=== PATIENT | female | born 1945 | race Caucasian/White ===

== ENCOUNTER 2020-11-06 18:34 | Inpatient (IN) | payer BC ==
[~2020-11-06] VITALS: Ht 167.6 cm; Wt 63.5 kg
[2020-11-06 18:36] VITALS: BP_SYST 137
[2020-11-06] MEDS ORDERED: VANCOMYCIN HCL 1,000 MG in NS 250 ML IV ONE (19:00)
[2020-11-06] MEDS ORDERED: CEFEPIME 1 GM in D5W 50 ML IV ONE (19:00)
[2020-11-06 19:12] LABS: BASOPHILS % (AUTO) 0.1 % (0.0-2.0); LYMPHOCYTES # (AUTO) 0.2 K/uL (1.0-5.5); LYMPHOCYTES % (AUTO) 2.9 % (20.5-51.5); MEAN CORPUSCULAR HEMOGLOBIN 30 pg (27-31); MEAN CORPUSCULAR HGB CONC 35 % (32-36); MEAN CORPUSCULAR VOLUME 87 fL (79.0-98.0); MONOCYTES # (AUTO) 0.2 K/uL (0.0-1.0); MONOCYTES % (AUTO) 1.9 % (1.7-9.3); NEUTROPHILS # (AUTO) 7.5 K/uL (1.8-7.7); NEUTROPHILS % (AUTO) 95.1 % (40.0-70.0); PLATELET COUNT (AUTO) 228 K/uL (130-430); RED BLOOD CELL COUNT(AUTO) 2.98 MIL/uL (4.2-6.2); RED CELL DISTRIBUTION WIDTH 14.2 % (9.0-15.0); WHITE BLOOD COUNT (AUTO) 7.9 K/uL (4.8-10.8)
[2020-11-06] MEDS ORDERED: PROPOFOL DRIP 100 ML IV ONE ×3 (19:12→21:00)
[2020-11-06] MEDS ORDERED: ETOMIDATE 20 MG/ 10 ML VIAL (AMIDATE) IVP ONE (19:15)
[2020-11-06] MEDS ORDERED: ROCURONIUM BROMIDE 10 MG/ML (ZEMURON) IV ONE (19:15)
[2020-11-06] MEDS ORDERED: NACL 0.9% 1,000 ML IV ONE (19:30)
[2020-11-06 19:33] LABS: INR 1.2 (0.8-1.2); PROTHROMBIN TIME 12.2 SECS (9.5-12.5)
[2020-11-06 19:38] LABS: C-REACTIVE PROTEIN QUANT 18.3 mg/dL (0-0.5)
[2020-11-06 19:41] LABS: ANION GAP 8 (5-15); CALCIUM 10.4 mg/dL (8.4-11.0); CHLORIDE 103 mmol/L (98-107); CREATININE 1.29 mg/dL (0.55-1.30); SODIUM SERUM 134 mmol/L (136-145); UREA NITROGEN, BLOOD 17 mg/dL (8-21)
[2020-11-06 19:50] LABS: GLUCOSE 124 mg/dL (70-99); POTASSIUM 2.4 mmol/L (3.5-5.1)
[2020-11-06 19:52] LABS: ALANINE AMINOTRANSFERASE 94 U/L (12-78); ALBUMIN 1.6 g/dL (3.4-4.8); ASPARTATE AMINOTRANSFERASE 123 U/L (10-37); BILIRUBIN,DIRECT 0.4 mg/dL (0.0-0.3); TOTAL BILIRUBIN 0.9 mg/dL (0.0-1.0)
[2020-11-06 19:53] LABS: LIPASE 266 U/L (73-393)
[2020-11-06] MEDS ORDERED: MAGNESIUM SULFATE 1 GM/2 ML VIAL IVP ONE (20:00)
[2020-11-06] MEDS ORDERED: POTASSIUM CHLORIDE 20 MEQ/PKT PACKET NG ONE (20:00)
[2020-11-06] MEDS ORDERED: POTASSIUM CHLORIDE 30 MEQ in NACL 0.9% 1,000 ML IV SCH (20:00)
[2020-11-06 20:07] LABS: BILIRUBIN,URINE NEGATIVE (NEGATIVE); BLOOD, URINE NEGATIVE (NEGATIVE); CLARITY/URINE CLEAR (CLEAR); COLOR,URINE YELLOW (YELLOW); GLUCOSE,URINE NEGATIVE (NEGATIVE); KETONES,URINE NEGATIVE (NEGATIVE); LEUKOCYTE ESTERASE ,URINE NEGATIVE (NEGATIVE); NITRITE, URINE NEGATIVE (NEGATIVE); PROTEIN URINE 1+ (NEGATIVE); UROBILINOGEN,URINE 0.2 (0.2-1.0)
[2020-11-06] MEDS ORDERED: IOHEXOL 350 mgI/mL, 150 ML INFUS..BTL IV ONE (20:23)
[2020-11-06 20:24] LABS: BACTERIA,URINE None Seen /HPF (None Seen); CALCIUM PHOSPHATE CRYSTALS,UR None Seen /HPF (None Seen); RBC,URINE NONE SEEN /HPF (0-3); TRICHOMONAS,URINE None Seen /HPF (None Seen); WBC,URINE 0-3 /HPF (0-3); YEAST,URINE None Seen /HPF (None Seen)
[2020-11-06] MEDS ORDERED: LevALBUTEROL HCL 1.25 MG/0.5 ML *CONC.* VIAL.NEB (XOPENEX CONC.) INH ONE (20:53)
[2020-11-06] MEDS ORDERED: CEFEPIME 1 GM/VIAL (MAXIPIME) ONE (20:56)
[2020-11-06] MEDS ORDERED: VANCOMYCIN HCL 1000 MG/VIAL IV ONE (20:56)
[2020-11-06] MEDS ORDERED: ALBUTEROL SULFATE 0.083% 2.5 MG/3 ML VIAL.NEB INH PRN (21:00)
[2020-11-06] MEDS ORDERED: LORazepam 2 MG/ML VIAL IVP PRN (21:00)
[2020-11-06] MEDS ORDERED: ACETAMINOPHEN 325 MG TABLET PO PRN (21:00)
[2020-11-06] MEDS ORDERED: AZITHROMYCIN 500 MG in NS 250 ML IV ONE (21:15)
[2020-11-06] MEDS ORDERED: *LOVENOX 1MG/KG Q12H/PHARMACY XX ONE (21:15)
[2020-11-06] MEDS: POTASSIUM CHLORIDE 10 MEQ in NACL 0.9% 1,000 ML IV SCH (21:15)
[2020-11-06] MEDS ORDERED: ASPIRIN 325 MG TABLET PO ONE (21:30)
[2020-11-06 21:36] VITALS: BP_SYST 161
[2020-11-06] MEDS ORDERED: ENOXAPARIN SODIUM 80 MG/0.8 ML SYRINGE SUBCUT ONE (21:45)
[2020-11-06] MEDS ORDERED: ACET325T PO (22:15)
[2020-11-06] MEDS ORDERED: AMLO5TAB4 PO (22:15)
[2020-11-06] MEDS ORDERED: SENN8.6T19 PO (22:15)
[2020-11-06] MEDS ORDERED: VENL37.587 PO (22:15)
[2020-11-06] MEDS ORDERED: ATOR20TA64 PO (22:15)
[2020-11-06] MEDS ORDERED: TOPXL100 PO (22:15)
[2020-11-06] MEDS ORDERED: GABA-529 PO (22:15)
[2020-11-06] MEDS ORDERED: PRO40 PO (22:15)
[2020-11-06] MEDS ORDERED: MOM PO (22:15)
[2020-11-06] MEDS ORDERED: DOCU-156 PO (22:15)
[2020-11-06] MEDS ORDERED: ACET-73 PO (22:15)
[2020-11-06] MEDS ORDERED: HYDR-3917 PO (22:15)
[2020-11-06] MEDS ORDERED: BISA-79 RC (22:15)
[2020-11-06] MEDS ORDERED: MAGN200T9 PO (22:15)
[2020-11-06] MEDS ORDERED: ONDA-8 TL (22:15)
[2020-11-06] MEDS ORDERED: FOLI-43 PO (22:15)
[2020-11-06 23:30] VITALS: BP_SYST 105
[2020-11-06 23:39] VITALS: BP_SYST 94
[2020-11-06] MEDS ORDERED: ENOXAPARIN SODIUM 100 MG/ML SYRINGE ONE (23:52)
[2020-11-07] VITALS (31 sets, daily range): BP systolic 78–144
[2020-11-07] MEDS ORDERED: cefTRIAXone 1 GM VIAL ONE (00:19)
[2020-11-07] MEDS ORDERED: AZITHROMYCIN 500 MG/VIAL (ZITHROMAX) IV ONE (00:19)
[2020-11-07] MEDS ORDERED: KCL 20 mEq in 100 mL (PREMIX) 100 ML IV ONE ×2 (00:19→00:55)
[2020-11-07] MEDS ORDERED: NOREPINEPHRINE BITARTRATE 4 MG in NS 246 ML IV PRN (00:30)
[2020-11-07 00:39] LABS: ALANINE AMINOTRANSFERASE 88 U/L (12-78); ALBUMIN 1.5 g/dL (3.4-4.8); ANION GAP 7 (5-15); ASPARTATE AMINOTRANSFERASE 116 U/L (10-37); CALCIUM 9.4 mg/dL (8.4-11.0); CHLORIDE 105 mmol/L (98-107); CREATININE 1.29 mg/dL (0.55-1.30); GLUCOSE 189 mg/dL (70-99); SODIUM SERUM 135 mmol/L (136-145); TOTAL BILIRUBIN 1.3 mg/dL (0.0-1.0); UREA NITROGEN, BLOOD 17 mg/dL (8-21)
[2020-11-07 00:42] LABS: POTASSIUM 2.8 mmol/L (3.5-5.1)
[2020-11-07] MEDS ORDERED: KCL 10 mEq in 50 mL (PREMIX) 100 ML IV ONE (00:55)
[2020-11-07] MEDS ORDERED: KCL 10 mEq in 50 mL (PREMIX) 50 ML IV ONE (01:00)
[2020-11-07] MEDS ORDERED: NOREPINEPHRINE 4 MG/4 ML VIAL IV ONE (01:10)
[2020-11-07] MEDS: KCL 10 mEq in 50 mL (PREMIX) 50 ML IV SCH ×3 (02:39→04:40)
[2020-11-07 07:03] LABS: BASOPHILS % (AUTO) 0.1 % (0.0-2.0); HEMATOCRIT 28.2 % (36-48); HEMOGLOBIN 9.3 g/dL (12.0-16.0); LYMPHOCYTES # (AUTO) 0.4 K/uL (1.0-5.5); LYMPHOCYTES % (AUTO) 2.6 % (20.5-51.5); MEAN CORPUSCULAR HEMOGLOBIN 29 pg (27-31); MEAN CORPUSCULAR HGB CONC 33 % (32-36); MEAN CORPUSCULAR VOLUME 89 fL (79.0-98.0); MONOCYTES # (AUTO) 0.3 K/uL (0.0-1.0); MONOCYTES % (AUTO) 2.2 % (1.7-9.3); NEUTROPHILS # (AUTO) 14.4 K/uL (1.8-7.7); NEUTROPHILS % (AUTO) 95.1 % (40.0-70.0); PLATELET COUNT (AUTO) 269 K/uL (130-430); RED BLOOD CELL COUNT(AUTO) 3.17 MIL/uL (4.2-6.2); RED CELL DISTRIBUTION WIDTH 14.4 % (9.0-15.0); WHITE BLOOD COUNT (AUTO) 15.1 K/uL (4.8-10.8)
[2020-11-07 07:34] LABS: INR 1.1 (0.8-1.2); PROTHROMBIN TIME 11.6 SECS (9.5-12.5)
[2020-11-07] MEDS ORDERED: ROCURONIUM BROMIDE 10 MG/ML (ZEMURON) IV ONE (07:42)
[2020-11-07] MEDS ORDERED: ETOMIDATE 20 MG/ 10 ML VIAL (AMIDATE) IVP ONE (07:42)
[2020-11-07 08:05] LABS: ALANINE AMINOTRANSFERASE 87 U/L (12-78); ALBUMIN 1.5 g/dL (3.4-4.8); ANION GAP 12 (5-15); ASPARTATE AMINOTRANSFERASE 102 U/L (10-37); CHLORIDE 106 mmol/L (98-107); CREATININE 1.37 mg/dL (0.55-1.30); GLUCOSE 171 mg/dL (70-99); POTASSIUM 3.5 mmol/L (3.5-5.1); SODIUM SERUM 136 mmol/L (136-145); TOTAL BILIRUBIN 0.9 mg/dL (0.0-1.0); UREA NITROGEN, BLOOD 18 mg/dL (8-21)
[2020-11-07] MEDS: ASPIRIN 325 MG TABLET PO SCH (08:22)
[2020-11-07] MEDS: PROPOFOL DRIP 100 ML IV PRN ×2 (08:23→21:56)
[2020-11-07] MEDS: POTASSIUM CHLORIDE 10 MEQ in NACL 0.9% 1,000 ML IV SCH ×2 (08:24→17:21)
[2020-11-07] MEDS: ENOXAPARIN SODIUM 80 MG/0.8 ML SYRINGE SUBCUT SCH ×2 (09:20→20:17)
[2020-11-07] MEDS: NOREPINEPHRINE BITARTRATE 4 MG in NS 246 ML IV PRN (09:24)
[2020-11-07] MEDS: PIPERACILLIN/TAZO 3.375/DEX-IS 50 ML IV SCH ×3 (11:31→23:55)
[2020-11-08] VITALS (27 sets, daily range): BP systolic 80–149
[2020-11-08] MEDS: POTASSIUM CHLORIDE 10 MEQ in NACL 0.9% 1,000 ML IV SCH ×3 (03:24→23:30)
[2020-11-08] MEDS: PROPOFOL DRIP 100 ML IV PRN ×2 (03:54→11:15)
[2020-11-08] MEDS: PIPERACILLIN/TAZO 3.375/DEX-IS 50 ML IV SCH ×3 (05:48→18:00)
[2020-11-08 06:40] LABS: BASOPHILS % (AUTO) 0.1 % (0.0-2.0); HEMATOCRIT 26.9 % (36-48); HEMOGLOBIN 8.7 g/dL (12.0-16.0); LYMPHOCYTES # (AUTO) 0.3 K/uL (1.0-5.5); LYMPHOCYTES % (AUTO) 1.6 % (20.5-51.5); MEAN CORPUSCULAR HEMOGLOBIN 29 pg (27-31); MEAN CORPUSCULAR HGB CONC 33 % (32-36); MEAN CORPUSCULAR VOLUME 89 fL (79.0-98.0); MONOCYTES # (AUTO) 0.2 K/uL (0.0-1.0); MONOCYTES % (AUTO) 1.3 % (1.7-9.3); NEUTROPHILS # (AUTO) 15.6 K/uL (1.8-7.7); PLATELET COUNT (AUTO) 218 K/uL (130-430); RED BLOOD CELL COUNT(AUTO) 3.02 MIL/uL (4.2-6.2); RED CELL DISTRIBUTION WIDTH 14.6 % (9.0-15.0)
[2020-11-08] MEDS: NOREPINEPHRINE BITARTRATE 4 MG in NS 246 ML IV PRN (06:55)
[2020-11-08 07:30] LABS: ALANINE AMINOTRANSFERASE 59 U/L (12-78); ALBUMIN 1.2 g/dL (3.4-4.8); ANION GAP 13 (5-15); ASPARTATE AMINOTRANSFERASE 63 U/L (10-37); CALCIUM 9.7 mg/dL (8.4-11.0); CHLORIDE 111 mmol/L (98-107); CREATININE 1.75 mg/dL (0.55-1.30); GLUCOSE 124 mg/dL (70-99); POTASSIUM 3.2 mmol/L (3.5-5.1); SODIUM SERUM 143 mmol/L (136-145); THYROID STIMULATING HORMONE 0.44 uIu/mL (0.36-3.74); TOTAL BILIRUBIN 0.9 mg/dL (0.0-1.0); UREA NITROGEN, BLOOD 21 mg/dL (8-21)
[2020-11-08 08:11] LABS: CHOLESTEROL < 50 mg/dL (<200); HDL CHOLESTEROL 10 mg/dL (>55); LDL CHOLESTEROL 20 mg/dL (<100); TRIGLYCERIDES 166 mg/dL (30-150)
[2020-11-08] MEDS: ENOXAPARIN SODIUM 80 MG/0.8 ML SYRINGE SUBCUT SCH ×2 (08:12→21:00)
[2020-11-08] MEDS: ASPIRIN 325 MG TABLET PO SCH (08:12)
[2020-11-08] MEDS ORDERED: LIDOCAINE 2% JELLY UROJECT 10 ML MM ONE (08:55)
[2020-11-08] MEDS ORDERED: LIDOCAINE 1%, 20 ML MDV 0 ML ONE (08:55)
[2020-11-08] MEDS ORDERED: KCL 40 mEq in 100 mL (PREMIX) 100 ML IV ONE ×2 (11:00→11:06)
[2020-11-08] MEDS: ALBUMIN HUMAN 25% 50 ML IV SCH ×3 (11:09→21:00)
[2020-11-08] MEDS ORDERED: MORPHINE SULFATE IN 0.9 % NACL 100 ML IV PRN (14:30)
[2020-11-08] MEDS ORDERED: NALOXONE HCL 0.4 MG/ML AMP (NARCAN) IVP PRN (14:30)
[2020-11-08] MEDS: HYDROMORPHONE HCL IN 0.9% NACL 100 ML IV PRN (16:30)
[2020-11-08] MEDS ORDERED: AZITHROMYCIN 500 MG in NS 250 ML IV SCH (18:30)
[2020-11-09] VITALS (21 sets, daily range): BP systolic 67–103
[2020-11-09] MEDS: PIPERACILLIN/TAZO 3.375/DEX-IS 50 ML IV SCH ×4 (06:00→23:15)
[2020-11-09 06:27] LABS: BASOPHILS % (AUTO) 0.2 % (0.0-2.0); HEMATOCRIT 30.1 % (36-48); HEMOGLOBIN 9.5 g/dL (12.0-16.0); LYMPHOCYTES # (AUTO) 0.2 K/uL (1.0-5.5); LYMPHOCYTES % (AUTO) 1.1 % (20.5-51.5); MEAN CORPUSCULAR HEMOGLOBIN 29 pg (27-31); MEAN CORPUSCULAR HGB CONC 32 % (32-36); MEAN CORPUSCULAR VOLUME 93 fL (79.0-98.0); MONOCYTES # (AUTO) 0.1 K/uL (0.0-1.0); MONOCYTES % (AUTO) 0.4 % (1.7-9.3); NEUTROPHILS # (AUTO) 19.2 K/uL (1.8-7.7); NEUTROPHILS % (AUTO) 98.3 % (40.0-70.0); PLATELET COUNT (AUTO) 241 K/uL (130-430); RED BLOOD CELL COUNT(AUTO) 3.25 MIL/uL (4.2-6.2); RED CELL DISTRIBUTION WIDTH 15.3 % (9.0-15.0); WHITE BLOOD COUNT (AUTO) 19.5 K/uL (4.8-10.8)
[2020-11-09 06:56] LABS: ALANINE AMINOTRANSFERASE 51 U/L (12-78); ALBUMIN 1.3 g/dL (3.4-4.8); ANION GAP 11 (5-15); ASPARTATE AMINOTRANSFERASE 54 U/L (10-37); CALCIUM 10.1 mg/dL (8.4-11.0); CHLORIDE 113 mmol/L (98-107); CREATININE 2.08 mg/dL (0.55-1.30); GLUCOSE 73 mg/dL (70-99); POTASSIUM 3.5 mmol/L (3.5-5.1); SODIUM SERUM 145 mmol/L (136-145); TOTAL BILIRUBIN 0.6 mg/dL (0.0-1.0); UREA NITROGEN, BLOOD 29 mg/dL (8-21)
[2020-11-09] MEDS: ENOXAPARIN SODIUM 80 MG/0.8 ML SYRINGE SUBCUT SCH ×2 (09:00→20:10)
[2020-11-09] MEDS: ASPIRIN 325 MG TABLET PO SCH (09:00)
[2020-11-09] MEDS: HYDROMORPHONE HCL IN 0.9% NACL 100 ML IV PRN (09:21)
[2020-11-09] MEDS: POTASSIUM CHLORIDE 10 MEQ in NACL 0.9% 1,000 ML IV SCH ×2 (09:22→20:15)
[2020-11-10 00:35] VITALS: BP_SYST 75
[2020-11-10] MEDS: POTASSIUM CHLORIDE 10 MEQ in NACL 0.9% 1,000 ML IV SCH ×2 (05:20→18:19)
[2020-11-10] MEDS: PIPERACILLIN/TAZO 3.375/DEX-IS 50 ML IV SCH (05:21)
[2020-11-10 06:50] LABS: BASOPHILS % (AUTO) 0.2 % (0.0-2.0); HEMATOCRIT 27.7 % (36-48); HEMOGLOBIN 8.6 g/dL (12.0-16.0); LYMPHOCYTES # (AUTO) 0.2 K/uL (1.0-5.5); LYMPHOCYTES % (AUTO) 1.3 % (20.5-51.5); MEAN CORPUSCULAR HEMOGLOBIN 29 pg (27-31); MEAN CORPUSCULAR HGB CONC 31 % (32-36); MEAN CORPUSCULAR VOLUME 94 fL (79.0-98.0); MONOCYTES # (AUTO) 0.1 K/uL (0.0-1.0); MONOCYTES % (AUTO) 0.5 % (1.7-9.3); NEUTROPHILS # (AUTO) 18.1 K/uL (1.8-7.7); PLATELET COUNT (AUTO) 174 K/uL (130-430); RED BLOOD CELL COUNT(AUTO) 2.94 MIL/uL (4.2-6.2); RED CELL DISTRIBUTION WIDTH 15.6 % (9.0-15.0); WHITE BLOOD COUNT (AUTO) 18.5 K/uL (4.8-10.8)
[2020-11-10 07:23] VITALS: BP_SYST 81
[2020-11-10 07:57] LABS: ALANINE AMINOTRANSFERASE 48 U/L (12-78); ALBUMIN 1.1 g/dL (3.4-4.8); ANION GAP 14 (5-15); ASPARTATE AMINOTRANSFERASE 60 U/L (10-37); CALCIUM 9.2 mg/dL (8.4-11.0); CHLORIDE 115 mmol/L (98-107); CREATININE 3.37 mg/dL (0.55-1.30); GLUCOSE 87 mg/dL (70-99); POTASSIUM 4.3 mmol/L (3.5-5.1); SODIUM SERUM 147 mmol/L (136-145); TOTAL BILIRUBIN 0.5 mg/dL (0.0-1.0); UREA NITROGEN, BLOOD 40 mg/dL (8-21)
[2020-11-10] MEDS ORDERED: HYDROMORPHONE HCL IN 0.9% NACL 100 ML IV ONE (08:12)
[2020-11-10] MEDS: HYDROMORPHONE HCL IN 0.9% NACL 100 ML IV PRN (08:16)
[2020-11-10 12:00] VITALS: BP_SYST 77
[2020-11-10 16:00] VITALS: BP_SYST 93
[2020-11-10 20:08] VITALS: BP_SYST 77
== END 2020-11-11 01:55 | DRG 871 ==
LOC: SED 18:34 → SIC 20:50 → STU 11-09 17:13
PROVIDERS: ADMIT Internal Medicine Hospice and Palliative Medicine; ATTEND Internal Medicine Hospice and Palliative Medicine
PROC: 5A1945Z Respiratory Ventilation, 24-96 Consecutive Hours (ICD-10-PCS; principal; 2020-11-06)
PROC: 0B9F8ZX Drainage of Right Lower Lung Lobe, Via Natural or Artificial Opening Endoscopic, Diagnostic (ICD-10-PCS; 2020-11-08)
PROC: 0B9D8ZX Drainage of Right Middle Lung Lobe, Via Natural or Artificial Opening Endoscopic, Diagnostic (ICD-10-PCS; 2020-11-08)
DX: A41.9 Sepsis, unspecified organism (principal); J96.01 Acute respiratory failure with hypoxia; J18.9 Pneumonia, unspecified organism; E43 Unspecified severe protein-calorie malnutrition; I21.4 Non-ST elevation (NSTEMI) myocardial infarction; R65.21 Severe sepsis with septic shock; E87.1 Hypo-osmolality and hyponatremia; I44.2 Atrioventricular block, complete; I42.9 Cardiomyopathy, unspecified; D64.9 Anemia, unspecified; E87.6 Hypokalemia; I11.0 Hypertensive heart disease with heart failure; I25.10 Atherosclerotic heart disease of native coronary artery without angina pectoris; E78.5 Hyperlipidemia, unspecified; G25.81 Restless legs syndrome; E88.09 Other disorders of plasma-protein metabolism, not elsewhere classified; Z51.5 Encounter for palliative care; Z20.822 Contact with and (suspected) exposure to COVID-19; Z96.649 Presence of unspecified artificial hip joint; I46.9 Cardiac arrest, cause unspecified; I50.9 Heart failure, unspecified; J98.4 Other disorders of lung; I25.2 Old myocardial infarction; Z98.61 Coronary angioplasty status; Z87.01 Personal history of pneumonia (recurrent)
CPT/HCPCS: 31622; 36415; 36600; 70450-TC; 71045; 71275; 76376; 80048; 80053; 80061; 80076; 81000; 82140; 82803-TC; 82962; 83605; 83690; 83735; 83880; 84443; 84484; 85025; 85379; 85610-TC; 85730-TC; 86140; 87040-TC; 87070-TC; 87081; 87086; 87186-TC; 87205-TC; 88108; 88305; 93005; 93306; 94002; 94003; 94640; 94760; 96361; 96365; 96366; 96367; 96375; 99291; C1751; G0378; J0456; J0692; J0696; J1650; J2001; J2060; J2543; J2704; J3370; J3475; J3480; J3490; J7030; J7050; J7060; J7612; P9046; Q9967